=== PATIENT | male | born 1955 | race Caucasian/White ===

== ENCOUNTER 2019-04-25 17:38 | Observation (INO) | payer BC ==
[2019-04-25] MEDS ORDERED: HYDROmorphone 1 MG/ML Syringe IVPUSH ONE (18:20)
[2019-04-25] MEDS ORDERED: fentaNYL 250 MCG/5 ML SDV ONE (18:31)
[2019-04-25] MEDS ORDERED: Midazolam 1 MG/ML 2 ML SDV ONE (18:31)
[2019-04-25] MEDS ORDERED: Propofol 200 MG/20 ML SDV ONE (18:31)
[2019-04-25] MEDS ORDERED: Rocuronium 100 MG/10 ML Syringe ONE (18:34)
[2019-04-25] MEDS ORDERED: Glycopyrrolate 0.2 MG/ML SDV ONE (18:34)
[2019-04-25] MEDS ORDERED: Lidocaine 2% 5 ML SDV ONE (18:34)
[2019-04-25] MEDS ORDERED: Ondansetron 4 MG/2 ML SDV ONE (18:34)
[2019-04-25] MEDS ORDERED: Neostigmine Methylsulfate 1 MG/ML 5 ML Syringe ONE (18:34)
[2019-04-25] MEDS ORDERED: fentaNYL 100 MCG/2 ML SDV IVPUSH PRN (18:37)
--- NOTE | 2019-04-25 18:37 | PCM.PREANE ---
Preanesthetic Assessment - Anesthesia/Transfusion/Family Hx Anesthesia History: Prior Anesthesia Without Reaction Type of Anesthesia Reaction: Allergy Family History of Anesthesia Reaction: No - Physical Assessment NPO Status Date: 04/25/19 NPO Status Time: 07:00 Vital Signs: Last Vital Signs Temp 36.4 C 04/25/19 17:44 Pulse 121 H 04/25/19 18:28 Resp 20 04/25/19 18:28 BP 107/82 04/25/19 18:28 Pulse Ox 96 04/25/19 18:28 Height: 1.85 m Weight: 95.254 kg ASA Class: 2E Mental Status: Alert & Oriented x3 Dentition: Reports: Implants Thyro-Mental Finger Breadths: 3 Mouth Opening Finger Breadths: 3 - Allergies Allergies/Adverse Reactions: Allergies Allergy/AdvReac Type Severity Reaction Status Date / Time No Known Allergies Allergy Verified 04/25/19 17:41 - Acknowledgements Anesthesia Type Planned: General Anesthesia Pt an Appropriate Candidate for the Planned Anesthesia: Yes Alternatives and Risks of Anesthesia Discussed w Pt/Guardian: Yes Pt/Guardian Understands and Agrees with Anesthesia Plan: Yes PreAnesthesia Questionnaire Cardiovascular History: Reports: High Cholesterol, Hypertension, DC Respiratory History: Reports: Asthma Gastrointestinal History: Reports: GERD Psychiatric History: Reports: Depression Endocrine/Metabolic History: Reports: Diabetes, Type II - Infectious Disease History Infectious Disease History: Reports: Chicken Pox - Past Surgical History Respiratory Surgical History: Reports: None GI Surgical History: Reports: Colonoscopy - SUBSTANCE USE Tobacco Use Within Last Twelve Months: Snuff/Dip Recreational Drug Use History: No - HOME MEDS Home Medications: Home Meds Albuterol [Proventil Neb Soln] 2.5 mg INH QIDRT 04/25/19 [History] Allopurinol [Zyloprim] 300 mg PO DAILY 04/25/19 [History] Aspirin [Ecotrin EC] 325 mg PO DAILY 04/25/19 [History] Carvedilol 6.25 mg PO DAILY 04/25/19 [History] DULoxetine [Cymbalta] 30 mg PO DAILY 04/25/19 [History] Empagliflozin [Jardiance] 25 mg PO DAILY 04/25/19 [History] Hydrocodone/Acetaminophen [[place] 5-325 Tablet] 1 tab PO QID PRN 04/25/19 [ History] Ipratropium [Atrovent] 0.5 mg INH BID PRN 04/25/19 [History] Rosuvastatin Calcium 40 mg PO DAILY 04/25/19 [History] Zolpidem [Ambien] 5 mg PO DAILY 04/25/19 [History] metFORMIN HCl [Metformin HCl] 1,000 mg PO DAILY 04/25/19 [History] - CURRENT (IN HOUSE) MEDS Current Meds: Current Medications Discontinued Medications Fentanyl (Sublimaze) Confirm Administered Dose 250 mcg .ROUTE .STK-MED ONE Stop: 04/25/19 18:32 Hydromorphone HCl (Dilaudid) 1 mg IVPUSH ONETIME ONE Stop: 04/25/19 18:21 Last Admin: 04/25/19 18:26 Dose: 1 mg Midazolam HCl (Versed 1 Mg/Ml) Confirm Administered Dose 2 mg .ROUTE .STK-MED ONE Stop: 04/25/19 18:32 Propofol (Diprivan 20 Ml) Confirm Administered Dose 200 mg .ROUTE .STK-MED ONE Stop: 04/25/19 18:32
[2019-04-25] MEDS ORDERED: ceFAZolin 1 GM Vial ONE (18:38)
[2019-04-25] MEDS ORDERED: Sodium Chloride 0.9% 20 ML ONE (18:38)
[2019-04-25] MEDS ORDERED: ePHEDrine 50 MG/ML SDV ONE (19:31)
[2019-04-25] MEDS ORDERED: Phenylephrine/Normal Saline 100 MCG/ML 10 ML Syringe ONE ×5 (19:36→20:32)
[2019-04-25] MEDS ORDERED: Albumin 5% 250 ML Bottle IV ONE (19:50)
[2019-04-25] MEDS ORDERED: Albumin 25% 12.5 GM in Premix Bag 1 BAG IV ONE (20:20)
[2019-04-25] MEDS ORDERED: Sugammadex Sodium 200 MG/2 ML VIAL ONE (21:21)
[2019-04-25] MEDS ORDERED: Ipratropium 0.02% 0.5 MG/2.5 ML Neb Soln INH PRN (21:52)
[2019-04-25] MEDS ORDERED: Belladonna Alkaloids/Opium 16.2-30 MG Supp RECTAL PRN (21:55)
--- NOTE | 2019-04-25 22:31 | PCM.POSTAN ---
POST ANESTHESIA ASSESSMENT - MENTAL STATUS Mental Status: Alert, Oriented - VITAL SIGNS Vital Signs: Last Vital Signs Temp 37.6 C 04/25/19 21:45 Pulse 97 04/25/19 22:20 Resp 11 L 04/25/19 22:20 BP 131/88 04/25/19 22:20 Pulse Ox 97 04/25/19 22:20 - RESPIRATORY Respiratory Status: Respiratory Rate WNL, Airway Patent, O2 Saturation Stable - CARDIOVASCULAR CV Status: Pulse Rate WNL, Blood Pressure Stable - GASTROINTESTINAL GI Status: No Symptoms - PAIN Pain Score: 0 - POST OP HYDRATION Hydration Status: Adequate & Stable - OBSERVATIONS Free Text/Narrative:: no anesthesia problems
[2019-04-25] MEDS: Bacitracin Oint 28.35 GM Tube TOP SCH (23:04)
[2019-04-25 23:11] LABS: POTASSIUM,K 4.6 mmol/L (3.5-5.1)
[2019-04-26] MEDS ORDERED: Tranexamic Acid 1,000 MG in Sodium Chloride 0.9% 100 ML IV ONE (02:00)
[2019-04-26] MEDS: Acetaminophen/HYDROcodone 325-5 MG Tab PO PRN ×3 (02:01→20:45)
[2019-04-26] MEDS: Bacitracin Oint 28.35 GM Tube TOP SCH ×3 (05:37→22:34)
[2019-04-26] MEDS ORDERED: Albuterol 0.5% 2.5 MG/0.5 ML Neb Soln INH SCH (06:00)
[2019-04-26] MEDS ORDERED: Albuterol 0.083% 2.5 MG/3 ML Neb Soln ONE (06:38)
[2019-04-26] MEDS ORDERED: Albuterol 0.5% 2.5 MG/0.5 ML Neb Soln NEB SCH (06:45)
[2019-04-26] MEDS ORDERED: Morphine 2 MG/ML Syringe IVPUSH PRN (07:35)
[2019-04-26 08:18] LABS: CARBON DIOXIDE,CO2 25.4 mmol/L (21.0-32.0); POTASSIUM,K 4.1 mmol/L (3.5-5.1)
[2019-04-26] MEDS: Allopurinol 300 MG Tab PO SCH (08:36)
[2019-04-26] MEDS: DULoxetine 30 MG Cap PO SCH (08:36)
[2019-04-26] MEDS: Docusate Sodium 100 MG Cap PO SCH ×2 (08:36→20:02)
[2019-04-26] MEDS: Carvedilol 6.25 MG Tab PO SCH (08:37)
[2019-04-26] MEDS: metFORMIN 500 MG Tab PO SCH (08:37)
[2019-04-26] MEDS: Rosuvastatin 10 MG Tab PO SCH (08:38)
[2019-04-26] MEDS ORDERED: Non-Formulary Medication 1 Each (Zolpidem 5 MG) PO SCH (09:00)
[2019-04-26] MEDS ORDERED: Sodium Chloride 0.9% 500 ML IV SCH (09:15)
[2019-04-26] MEDS ORDERED: ePHEDrine 50 MG/ML SDV ONE (09:21)
--- NOTE | 2019-04-26 09:29 | PCM48HPAN ---
Post Anesthesia Note - EVALUATION WITHIN 48HRS OF ANESTHETIC Vital Signs in Normal Range: Yes Patient Participated in Evaluation: Yes Respiratory Function Stable: Yes Airway Patent: Yes Cardiovascular Function Stable: Yes Hydration Status Stable: Yes Pain Control Satisfactory: Yes Nausea and Vomiting Control Satisfactory: Yes Mental Status Recovered: Yes Vital Signs: Last Vital Signs Temp 36.9 C 04/26/19 07:39 Pulse 107 H 04/26/19 08:37 Resp 20 04/26/19 07:39 BP 107/71 04/26/19 08:37 Pulse Ox 97 04/26/19 07:39 - COMMENTS/OBSERVATIONS Free Text/Narrative:: no anesthesia problems
[2019-04-26] MEDS: Phenylephrine 10 MG in Sodium Chloride 0.9% 99 ML IV SCH ×3 (09:41→14:35)
[2019-04-26 10:01] LABS: BLOOD UREA NITROGEN,BUN 12 mg/dL (7.0-18.0)
[2019-04-26] MEDS ORDERED: Albuterol 0.083% 2.5 MG/3 ML Neb Soln NEB SCH (11:00)
[2019-04-26] MEDS: Empagliflozin [Jardiance] 25 MG PO SCH (11:42)
[2019-04-26] MEDS ORDERED: Iopamidol 755 MG/ML 500 ML Multipack Bottle IVPUSH STA (12:13)
--- NOTE | 2019-04-26 12:51 | CT ---
CT abdomen and pelvis Technique: Multiple axial sections were obtained from above the dome of the diaphragm inferiorly through the pubic symphysis. Intravenous contrast was utilized. No oral contrast has been given. Delayed images were also obtained through the abdomen and pelvis. Comparison: Previous CT abdomen and pelvis exam of 09/12/18. Findings: Fatty infiltration is seen which is not as severe as on prior exam. Cyst is noted within the right lobe of the liver which is an interval change from previous exam and measures approximately 2.0 cm. Smaller low-density finding is seen more inferiorly within the right lobe also felt to represent minimal cyst measuring about 6 mm in size. This is also an interval change from previous exam. Gallbladder contains no calcified gallstones. Spleen appears within normal limits. Mild areas of discoid atelectasis are seen within both lung bases. Adrenal glands show no nodule. Kidneys show symmetric contrast enhancement. Cyst is noted within the left kidney measuring approximately 7.0 cm in size which appears fairly stable from previous exam. Kidneys show no hydronephrosis. Pancreas is within normal limits. Aorta shows atherosclerotic calcification without aneurysm. No retroperitoneal adenopathy is seen. No mesenteric abnormalities are seen. No pelvic mass or adenopathy is noted. Rick catheter is present within the bladder. Air is noted within the bladder presumably from instrumentation. Bladder wall is mildly thickened. Small bladder diverticulum is noted. No free fluid or inflammatory change seen within the abdomen or pelvis. Appendix is seen which is normal in size. Delayed images shows contrast within the collecting systems of both kidneys which appear without filling defects. Ureters are opacified down to the bladder. No ureteral obstruction is seen. Bone window settings were reviewed which shows scattered disc space narrowing within the lower thoracic and upper lumbar spine as well as at L5-S1. No acute osseous abnormality is appreciated. Impression: 1. 2 cyst within the liver which is an interval change from prior study. Liver also shows mild fatty infiltration which does not appear as severe as on prior exam. 2. Rick catheter within the bladder as well as air within the bladder presumably due to instrumentation. Bladder wall is diffusely thickened. Small bladder diverticulum is seen. 3. Other findings as noted above believed to be incidental. Nothing acute is seen. Diagnostic code #2 MTDD
--- NOTE | 2019-04-26 16:31 | PN ---
Tito Maldonado is 64 years old. He was transferred from [place] yesterday with gross hematuria. He was taken to the operating room. His bladder was clean, no clots, the total volume of which was approximately 1200 mL. Cystoscopy showed the bleeding to be coming from the small area on the right side of the bladder. The bleeding appeared vigorous. Repeated attempt at cauterizing that bleeder. There was no definite tumor observed. A biopsy was done, and eventually, the bleeding was stopped after he was given 1000 mg of tranexamic acid IV. His urine became clear and remained clear overnight. This morning, he is alert. He is oriented. He feels well. His irrigation is clear. His blood pressure, after he received his Coreg, dropped down to 70/50. Blood pressure came back up after a small dose of and Marco-Synephrine. Blood pressure is back up to the mean pressure now at 65, and the bladder irrigation remains clear. GIN / SCHUYLER /[id number]
[2019-04-26] MEDS: Albuterol 0.083% 2.5 MG/3 ML Neb Soln NEB SCH (20:56)
[2019-04-27] MEDS: Bacitracin Oint 28.35 GM Tube TOP SCH (06:31)
[2019-04-27 07:33] LABS: CARBON DIOXIDE,CO2 26.5 mmol/L (21.0-32.0); POTASSIUM,K 4.3 mmol/L (3.5-5.1)
[2019-04-27] MEDS: Acetaminophen/HYDROcodone 325-5 MG Tab PO PRN (08:06)
[2019-04-27] MEDS: Albuterol 0.083% 2.5 MG/3 ML Neb Soln NEB SCH (08:47)
[2019-04-27] MEDS: Carvedilol 6.25 MG Tab PO SCH (09:00)
[2019-04-27] MEDS: Docusate Sodium 100 MG Cap PO SCH (09:19)
[2019-04-27] MEDS: Rosuvastatin 10 MG Tab PO SCH (09:20)
[2019-04-27] MEDS: Empagliflozin [Jardiance] 25 MG PO SCH (09:21)
[2019-04-27] MEDS: Allopurinol 300 MG Tab PO SCH (09:21)
[2019-04-27] MEDS: DULoxetine 30 MG Cap PO SCH (09:24)
[2019-04-27] MEDS: metFORMIN 500 MG Tab PO SCH (09:46)
[2019-04-27] MEDS ORDERED: Bisacodyl 10 MG Supp RECTAL ONE (11:05)
[2019-04-27] MEDS ORDERED: Midazolam 1 MG/ML 2 ML SDV ONE (11:40)
[2019-04-27] MEDS ORDERED: Midazolam 1 MG/ML 2 ML SDV IVPUSH ONE (11:58)
--- NOTE | 2019-04-27 12:50 | OR ---
SURGEON: Fadia Fu M.D. DATE OF PROCEDURE: 04/27/2019 PREOPERATIVE DIAGNOSIS: Gross hematuria, post intervention and coagulation. POSTOPERATIVE DIAGNOSIS: Gross hematuria, post intervention and coagulation. HISTORY: A 64-year-old. He had an episode of massive gross hematuria where he bled approximately 3 units of blood, collected over a liter of blood clots from his bladder by the time he got to me. He was irrigated and some of the cl[place]. They worked on him for about 3 hours and looked in his bladder neck to find one area that was bleeding on the right wall of bladder, relatively small area. There was no obvious malignancy. That was coagulated using the resectoscope and biopsied. The biopsy was benign. It showed eosinophilic infiltration. I wanted to take another look today when he is not bleeding to have a clear view of that and the rest of the bladder. DESCRIPTION OF PROCEDURE: The patient was in the dorsal lithotomy position. He was given 2 mg of Versed IV. The 25-[place] cystoscope was introduced in the bladder under vision without difficulty. There was minimal irritation of the prostate and prostatic urethra. Inside of the bladder is uniformly irritated. The area that was previously treated is visualized as benign looking and there was no active bleeding. A picture was taken of that for documentation. With that done, the procedure was terminated, and the patient was returned to his room without the catheter. GIN / SCHUYLER /[id number]
--- NOTE | 2019-05-01 13:09 | DISCH ---
DATE OF DISCHARGE: 04/27/2019 PRIMARY CARE PHYSICIAN: Unknown PCP HOSPITAL COURSE: He was transferred from [place] with gross hematuria. Apparently, they worked in the [place] ER for 3 or 4 hours, trying to clear the blood clots out of his bladder that was not enough. I was called, received him, and took him to the operating room, evacuated a little over a liter of blood clot from his bladder. The [place] ER did not have the tools to evacuate all of these blood clots in a reasonable time. Following that, I looked in the bladder and found a small area about maybe 1 x 1.5 cm on the right wall of the bladder that was profusely bleeding. Eventually through the blood and the bleeding, I was able to see the area and fulgurated multiple times. The bleeding would not stop with that, so we ended up giving him 1,000 mg of tranexamic acid that made the bleeding stop. He was then admitted to the ICU. He had received 2 units of blood in the OR. He received 500 mL of albumin and 1 unit fresh frozen plasma. In the ICU, he remained on TUR drip. The urine remained clear following the procedure and stayed clear. The catheter was taken out this morning. I took him back to the operating room to take a look at the area that was bleeding, without the bleeding, to get a better view, and it is a benign looking area. I did do a biopsy when I did the coagulation, and that also was benign. He does not have a bladder tumor. I took some images, and from these, one can tell that the entire bladder is angry looking and irritated. One can presume some sort of cystitis, did not appear to be a bacterial cystitis, however. Interestingly, the 2 times this happened to him, it was both times after lifting something excessively heavy, which obviously created enough venous congestion in and around the pelvis that led into a blood vessel blasting open, which would explain what had happened this time. He is sent home on 81 mg of aspirin instead of 325 mg a day. He is told to contact me with the first sign of bleeding. The next step would be, if this happens again, is for me or another urologist to actually remove that part of the bladder, and that was explained to the family. While here, it is pertinent to mention that he had CT scan of abdomen and pelvis with IV contrast that showed normal upper tracts. No indication of another source of bleeding in the kidneys. He does have a large 7 cm cyst in the left kidney that essentially has not changed. The bladder had an irregular outline, but from all the edema and all the work that was done, it was easy to explain that. The CT scan was done after the procedure was completed, and he was not bleeding at that time. At the time of discharge, he is alert, he is afebrile, he is oriented. His hemoglobin is 12, and his urine is reasonably clear. GIN / SCHUYLER /[id number]
== END 2019-04-27 16:20 | disposition home or self-care (01) ==
LOC: MW.ED 17:38 → MW.SDS 19:09 → MW.MS 19:23 → MW.SDS 21:32 → MW.ICU 21:35
PROVIDERS: ADMIT Urology; ATTEND Urology
DX: N30.21 Other chronic cystitis with hematuria (principal); N28.1 Cyst of kidney, acquired; I10 Essential (primary) hypertension; I25.2 Old myocardial infarction; E11.9 Type 2 diabetes mellitus without complications; E78.00 Pure hypercholesterolemia, unspecified; K21.9 Gastro-esophageal reflux disease without esophagitis; J45.909 Unspecified asthma, uncomplicated; F32.9 Major depressive disorder, single episode, unspecified; F17.200 Nicotine dependence, unspecified, uncomplicated; Z79.82 Long term (current) use of aspirin; Z79.84 Long term (current) use of oral hypoglycemic drugs; Z79.899 Other long term (current) drug therapy
CPT/HCPCS: 36415; 36430; 52000; 52001; 52204; 53899; 74177; 80051; 82565; 82962; 84132; 84295; 84520; 85014; 85018; 85025; 85610; 86850; 86900; 86901; 86920; 86921; 86922; 88302; 88305; 94640; 99284; A9270; J0690; J1170; J2001; J2250; J2370; J2405; J2704; J3010; J3490; J7030; J7040; P9016; P9017; P9047; Q9967; 00910; G0378